=== PATIENT | male | born 1965 | race Caucasian/White ===

== ENCOUNTER → 2019-11-25 13:21 | Outpatient (CLI) | payer BC, SELFPAY ==
--- NOTE | 2019-11-25 13:23 | MRI_ITS ---
STUDY: MRI LEFT SHOULDER REASON FOR EXAM: Decreased range of motion and painful reaching backwards, no specific injury. TECHNIQUE: Standardized fat and water weighted pulse sequences were obtained in all 3 orthogonal planes. COMPARISON: None. FINDINGS: There is mild supraspinatus tendinosis (T2 coronal images 12, 13) without discrete tendon tear. Normal infraspinatus tendon. There is mild subscapularis tendinosis (T2 axial image 13) without discrete tendon tear. Normal teres minor tendon. Normal supraspinatus muscle. Normal infraspinatus muscle. Normal subscapularis muscle. There is mild atrophy with mild partial fat replacement of the teres minor muscle (T2 sagittal images 3-6). There is glenohumeral arthrosis with chondral thinning of the posterior glenoid (T2 axial images 12-14), mild posterior subluxation of the glenohumeral joint and subchondral cystic change/bone edema of the glenoid (T2 coronal images 7-9). There is a small glenohumeral joint effusion with fluid extending into the bicipital tendon sheath. There is a small subchondral cyst in the anterior aspect of the humeral head. There is a suspected SLAP lesion (T2 coronal images 11-13). There is mild tendinosis of the intracapsular long biceps tendon (T2 sagittal images 9, 10). There is degeneration of the posterior labrum (proton density axial images 11-14). Normal capsulo- ligamentous complex. There is acromioclavicular arthrosis with hypertrophic changes effacing the subacromial fat (T2 sagittal images 9, 10). There is a Type II morphology (curved), with a neutral orientation. There is no subacromial-subdeltoid bursal fluid. Normal visualized coracohumeral and coracoacromial ligaments. There is a low-grade strain of the posterior lateral deltoid muscle (T2 coronal images 3, 4). Normal trapezius muscle. MRI/Upper Ext Joint Only(Routine) IMPRESSION: Mild supraspinatus and subscapularis tendinosis without demonstrated rotator cuff tear. Mild atrophy of the teres minor muscle. Glenohumeral arthrosis with mild posterior subluxation of the glenohumeral joint and degeneration of the posterior labrum. Suspected SLAP lesion. Mild tendinosis of the long biceps tendon. Acromioclavicular arthrosis. Low-grade strain of the deltoid muscle. Small glenohumeral joint effusion. Electronically Signed: Chip Lee MD at 15:10 EST Tel , Service support ,
== END ==
PROVIDERS: PCP Family Medicine; Referring Provider Orthopaedic Surgery; Visit Provider Orthopaedic Surgery
DX: M75.102 Unspecified rotator cuff tear or rupture of left shoulder, not specified as traumatic (principal)
CPT/HCPCS: 73221

== ENCOUNTER → 2020-06-26 16:02 | Outpatient (CLI) | payer BC, SELFPAY ==
--- NOTE | 2020-06-26 16:06 | MRI_ITS ---
STUDY: MRI RIGHT KNEE REASON FOR EXAM: Male, 54 years old. Pain. TECHNIQUE: Standardized fat and water weighted pulse sequences were obtained in all 3 orthogonal planes. COMPARISON: None. FINDINGS: Medial meniscus tear of the posterior horn, series 3 images 31/46 through 35/46. There is diffuse, greater than 50% thickness articular cartilage loss of the medial femorotibial compartment. There is mild osteoarthritic spur formation of the medial knee compartment. Normal medial collateral ligamentous complex (MCL). Normal distal semimembranosus, gracilis and semitendinosus tendons. Normal lateral meniscus. Normal hyaline cartilage of the lateral femorotibial compartment. Normal lateral d tibial plateau. Cystic regions of the lateral femoral condyle. Normal proximal tibiofibular articulation. Normal lateral collateral (fibular) ligament. Normal popliteus tendon. Normal biceps femoris tendon. Normal anterior cruciate ligament (ACL). Normal posterior cruciate ligament (PCL). There is arthrosis of the patellofemoral articulation. Normal hyaline cartilage of the patellofemoral compartment. Normal medial and lateral patellar retinaculum. Normal quadriceps tendon. Normal patellar tendon. Normal Hoffa''s fat pad. There is a small volume joint effusion. The soft tissues are unremarkable. The otherwise visualized osseous structures are unremarkable. MRI/Lower Ext Joint Only (Routine) IMPRESSION: Medial meniscus tear. Degenerative change. Joint effusion. Electronically Signed: Viral Schilling MD at 22:55 EDT , Service support ,
== END ==
PROVIDERS: PCP Family Medicine; Referring Provider Orthopaedic Surgery; Visit Provider Orthopaedic Surgery
DX: S83.241A Other tear of medial meniscus, current injury, right knee, initial encounter (principal)
CPT/HCPCS: 73721

== ENCOUNTER → 2021-06-14 06:28 | Outpatient (CLI) | payer BC, SELFPAY ==
--- NOTE | 2021-06-14 06:40 | MRI_ITS ---
STUDY: MRI LUMBAR SPINE WITHOUT CONTRAST REASON FOR EXAM: Male, 55 years old. LBP with left leg radiculopathy TECHNIQUE: Standardized fat and water weighted pulse sequences were obtained in the sagittal and axial planes. COMPARISON: None FINDINGS: T12-L1: Normal endplates. Normal disc height, hydration and morphology. Normal bilateral facet joints. Normal central canal and bilateral lateral recesses. Normal bilateral intervertebral neural foramina. Normal lumbar lordosis. There is no substantial scoliosis. Normal conus medullaris that terminates at the L1. L1-2: Normal endplates. Normal disc height, hydration and morphology. Normal bilateral facet joints. Normal central canal and bilateral lateral recesses. Normal bilateral intervertebral neural foramina. L2-3: Normal endplates. Normal disc height, hydration and morphology. Normal bilateral facet joints. Normal central canal and bilateral lateral recesses. Normal bilateral intervertebral neural foramina. L3-4: Normal endplates. Normal disc height, hydration and morphology. Normal bilateral facet joints. Normal central canal and bilateral lateral recesses. Normal bilateral intervertebral neural foramina. L4-5: Normal endplates. Normal disc height, hydration and morphology. Normal bilateral facet joints. Normal central canal and bilateral lateral recesses. Normal bilateral intervertebral neural foramina. L5-S1: Mild broad disc protrusion asymmetric to the left with a left foraminal protrusion produces mild spinal stenosis, moderate left lateral recess stenosis with abutment of the left S1 nerve root and moderate left neural foraminal stenosis with abutment of the left L5 nerve root. Normal visualized sacral ala. Normal visualized paraspinous soft tissue structures. MRI/Spine Lumbar (Routine) IMPRESSION: Focal degenerative disc disease asymmetric to the left at L5/S1 as described above. Electronically Signed: Karthik Joseph MD at 9:04 EDT Tel , Service support ,
== END ==
PROVIDERS: PCP Family Medicine
DX: M54.16 Radiculopathy, lumbar region (principal)
CPT/HCPCS: 72148

== ENCOUNTER → 2023-07-31 | Outpatient (CLI) | payer BC, SELFPAY | END | disposition home or self-care (01) | LOC: LABSPEC 12:25 | PROVIDERS: PCP Family Medicine; Referring Provider Family Medicine; Visit Provider Family Medicine | DX: R31.9 Hematuria, unspecified (principal) | CPT/HCPCS: 87086 ==

== ENCOUNTER → 2023-08-01 | Outpatient (CLI) | payer BC, SELFPAY ==
[2023-08-01 10:15] LABS: Absolute Lymphocyte Count 1.53 X10^3/uL (0.83-4.51); Basophil# 0.03 X10^3/uL; Basophil% 0.5 % (0-1); Eosinophil# 0.09 X10^3/uL; Eosinophils% 1.4 % (0-5); Hematocrit 48.1 % (40-54); Hemoglobin 16.7 g/dL (13.0-16.5); Lymphocyte # 1.53 X10^3/ul (0.83-4.51); Lymphocyte % 24.5 % (19-41); Mean Corp Hgb Conc 34.7 g/dL (32-36); Mean Corpuscular Hgb 31.1 pg (27.0-32.0); Mean Corpuscular Volume 89.6 fL (80-94); Mean Platelet Vol. 10.4 fl (6.2-12.0); Monocyte# 0.57 X10^3/uL; Monocyte% 9.1 % (0-10); NRBC Flagged by Analyzer 0 % (0-5); Platelet Count 197 K/mm3 (150-450); RBC Distribution Width CV 13.1 % (11.6-14.6); RBC Distribution Width SD 42.8 fl (35.1-43.9); Red Blood Count 5.37 M/mm3 (4.6-6.2); White Blood Count 6.3 K/mm3 (4.4-11.0)
[2023-08-01 10:32] LABS: Erythrocyte Sedimentation Rate 5 mm/hr (0-20)
[2023-08-01 10:58] LABS: ALB/GLOB Ratio 1.1 RATIO (0.9-2.4); AST(SGOT) 18 U/L (15-37); Alanine Aminotransfer ALT/SGPT 48 U/L (16-61); Albumin, Serum 3.9 g/dL (3.2-5.0); Alkaline Phosphatase 76 U/L (45-117); Anion Gap 4 (5-15); BUN 15 mg/dL (7-18); BUN/Creat Ratio 16.6 RATIO (10-20); Calcium,Total 9.1 mg/dL (8.5-10.1); Chloride 105 mmol/L (98-107); Cholesterol 155 mg/dL (200); EST Glomerular Filtration Rate 92 mL/min (>60); Est Glom Filt Rate - Afr Amer 112 mL/min (>60); Globulin 3.6 g/dL (2.2-4.2); Glucose 93 mg/dL (74-106); High Density Lipoprotein 31 mg/dL; PSA,Total - Annual Screen 7.75 ng/mL (0.00-4.00); Protein, Total 7.5 g/dL (6.4-8.2); Sodium Level 137 mmol/L (136-145); Triglycerides 216 mg/dL; Very Low Density Lipoprotein 43 mg/dL (5-40)
== END | disposition home or self-care (01) ==
LOC: MTLAB 08:19
PROVIDERS: PCP Family Medicine; Referring Provider Family Medicine; Visit Provider Family Medicine
DX: Z00.00 Encounter for general adult medical examination without abnormal findings (principal); Z12.5 Encounter for screening for malignant neoplasm of prostate; Z13.220 Encounter for screening for lipoid disorders; R31.9 Hematuria, unspecified; Z13.1 Encounter for screening for diabetes mellitus
CPT/HCPCS: 36415; 80053; 80061; 84153; 84403; 84443; 85025; 85652; G0103

== ENCOUNTER → 2023-08-11 | Outpatient (CLI) | payer BC, SELFPAY ==
[2023-08-13 12:08] LABS: PSA, Free 0.78 ng/mL; PSA, Free % 13.7 % (.)
== END | disposition home or self-care (01) ==
LOC: LAB 14:49
PROVIDERS: PCP Family Medicine; Referring Provider Urology; Visit Provider Urology
DX: N40.1 Benign prostatic hyperplasia with lower urinary tract symptoms (principal)
CPT/HCPCS: 36415; 84153; 84154

== ENCOUNTER → 2023-08-20 | Outpatient (CLI) | payer BC, SELFPAY ==
--- NOTE | 2023-08-20 17:50 | CT_ITS ---
STUDY: CT ABDOMEN AND PELVIS WITHOUT AND WITH CONTRAST REASON FOR EXAM: Male, 57 years old. BPH,HEMATURIA RADIATION DOSAGE (If Supplied By Facility): CTDIvol = ( 25.38 ) mGy, DLP = ( 4078.86 ) mGycm TECHNIQUE: IV 100mL Isovue-[id number] was administered. Transaxial images were obtained from the dome of the diaphragm to the symphysis pubis. Multiplanar coronal and sagittal images were reformatted. Individualized Dose Optimization Techniques Were Used For This CT. COMPARISON: FINDINGS: The visualized lung bases are unremarkable. The visualized portions of the heart are within normal limits. Normal liver. Cholelithiasis. No significant dilatation of the extrahepatic biliary system. Normal spleen. Normal pancreas. Normal bilateral adrenal glands. Normal visualized stomach. Normal small intestine. Normal colon. The appendix is visualized and appears normal. Normal abdominal aorta. No retroperitoneal adenopathy. Normal right kidney. Normal left kidney. Normal urinary bladder. The prostate is 4.2 x 5.3 cm. Small fatty umbilical hernia. Normal osseous structures. CT/CT Abd/Pelvis W/WO Contrast IMPRESSION: Cholelithiasis. Small fatty umbilical hernia. Electronically Signed: John Casas DO at 19:25 EDT ,
== END | disposition home or self-care (01) ==
LOC: CT 17:47
PROVIDERS: PCP Family Medicine; Visit Provider Urology
DX: N40.1 Benign prostatic hyperplasia with lower urinary tract symptoms (principal); R31.0 Gross hematuria
CPT/HCPCS: 74178; Q9967

== ENCOUNTER → 2024-02-19 | Outpatient (CLI) | payer BC, SELFPAY ==
[2024-02-19 18:48] LABS: PSA,Total- Diagnostic 6.15 ng/mL (0.0-4.0)
== END | disposition home or self-care (01) ==
LOC: LAB 16:12
PROVIDERS: PCP Family Medicine; Referring Provider Urology; Visit Provider Urology
DX: N40.1 Benign prostatic hyperplasia with lower urinary tract symptoms (principal)
CPT/HCPCS: 36415; 84153; 84403

== ENCOUNTER → 2025-08-02 | Outpatient (CLI) | payer BC, SELFPAY ==
[2025-08-04 13:08] LABS: PSA, Free 0.80 ng/mL; PSA, Free % 16.7 % (.); PSA, Total Ultrasensitive 4.790 ng/mL (0.000-4.000)
== END | disposition home or self-care (01) ==
LOC: LAB 16:18
PROVIDERS: PCP Family Medicine; Referring Provider Urology; Visit Provider Urology
DX: R97.20 Elevated prostate specific antigen [PSA] (principal)
CPT/HCPCS: 36415; 84153; 84154